=== PATIENT | female | born 1995 | race Caucasian/White ===

== ENCOUNTER 2020-08-28 16:06 | Emergency (ER) | payer OTHER ==
[~2020-08-28 16:06] MED LIST: CIPRODEX OTIC7.5 ML EARRT; DOXYCYCLINE HY100 MG PO; MACROBID 100 M100 MG PO; METRONIDAZOLE500 MG PO; NORCO 5-325 TA1 EACH PO; PYRIDIUM100 MG PO; ZOFRAN4 MG PO
[2020-08-28] MEDS ORDERED: VIBRAMYCIN100 MG PO (16:50)
[2020-08-31 17:09] LABS: CHLAMYDIA TRACHOMATIS, NAA Negative (Negative); NEISSERIA GONORRHOEAE, NAA Negative (Negative)
== END 2020-08-28 18:20 | disposition home or self-care (01) ==
LOC: ER1 16:06
PROVIDERS: Physician Assistant
DX: A64 Unspecified sexually transmitted disease (principal); F17.290 Nicotine dependence, other tobacco product, uncomplicated; Z88.8 Allergy status to other drugs, medicaments and biological substances
CPT/HCPCS: 81001; 84703; 87086; 96372; 99283; J0696

== ENCOUNTER 2021-03-06 20:38 | Emergency (ER) | payer OTHER ==
[~2021-03-06 20:38] MED LIST changes: +VIBRAMYCIN100 MG PO
== END 2021-03-06 21:38 | disposition home or self-care (01) ==
LOC: ER1 20:38
DX: N93.9 Abnormal uterine and vaginal bleeding, unspecified (principal); Z88.5 Allergy status to narcotic agent; Z88.1 Allergy status to other antibiotic agents
CPT/HCPCS: 99281

== ENCOUNTER 2021-05-24 21:36 | Emergency (ER) | payer OTHER | END 2021-05-24 22:35 | disposition left against medical advice (07) | LOC: ER1 21:36 | DX: Z53.21 Procedure and treatment not carried out due to patient leaving prior to being seen by health care provider (principal) ==

== ENCOUNTER 2021-07-17 02:51 | Emergency (ER) | payer OTHER ==
[2021-07-17 05:24] LABS: HEMOGLOBIN 12.2 gm/dl (12.3-15.3); RED BLOOD COUNT 4.12 M/UL (4.00-5.10); WHITE BLOOD COUNT 6.2 K/UL (4.5-11.0)
[2021-07-17 05:49] LABS: BUN/CREATININE RATIO 20 (0-10)
[2021-07-17] MEDS ORDERED: AMOXICILLIN500 MG PO (06:18)
[2021-07-17] MEDS ORDERED: PYRIDIUM200 MG PO (06:18)
[2021-07-17] MEDS ORDERED: MIRALAX 119 GR119 GM GT (06:19)
== END 2021-07-17 06:35 | disposition home or self-care (01) ==
LOC: ER1 02:51
PROVIDERS: Family Medicine
DX: O23.42 Unspecified infection of urinary tract in pregnancy, second trimester (principal); N39.0 Urinary tract infection, site not specified; O99.332 Smoking (tobacco) complicating pregnancy, second trimester; F17.200 Nicotine dependence, unspecified, uncomplicated; Z3A.14 14 weeks gestation of pregnancy
CPT/HCPCS: 80053; 83690; 85025; 99284

== ENCOUNTER 2021-07-28 02:57 | Emergency (ER) | payer OTHER ==
[~2021-07-28 02:57] MED LIST changes: +AMOXICILLIN500 MG PO; +MIRALAX 119 GR119 GM GT; +PYRIDIUM200 MG PO
[2021-07-28 04:30] LABS: HEMOGLOBIN 10.7 gm/dl (12.3-15.3); RED BLOOD COUNT 3.6 M/UL (4.00-5.10); WHITE BLOOD COUNT 7.5 K/UL (4.5-11.0)
[2021-07-28 04:46] LABS: BUN/CREATININE RATIO 21 (0-10)
[2021-07-28] MEDS ORDERED: ONDANSETRON ODT4 MG SL (05:15)
[2021-07-28] MEDS ORDERED: CEFDINIR300 MG PO (05:15)
== END 2021-07-28 05:27 | disposition home or self-care (01) ==
LOC: ER1 02:57
PROVIDERS: Physician Assistant
DX: O23.42 Unspecified infection of urinary tract in pregnancy, second trimester (principal); N39.0 Urinary tract infection, site not specified; O99.332 Smoking (tobacco) complicating pregnancy, second trimester; F17.200 Nicotine dependence, unspecified, uncomplicated; Z3A.16 16 weeks gestation of pregnancy; Z88.8 Allergy status to other drugs, medicaments and biological substances
CPT/HCPCS: 80053; 81001; 83690; 85025; 87086; 96374; 96375; 99284; J0696; J2405

== ENCOUNTER 2021-08-16 15:48 | Emergency (ER) | payer OTHER ==
[~2021-08-16 15:48] MED LIST changes: +CEFDINIR300 MG PO; +ONDANSETRON ODT4 MG SL
[2021-08-16 16:31] LABS: HEMOGLOBIN 12.8 gm/dl (12.3-15.3); RED BLOOD COUNT 4.15 M/UL (4.00-5.10)
[2021-08-16 16:58] LABS: BUN/CREATININE RATIO 14 (0-10)
== END 2021-08-16 17:31 | disposition left against medical advice (07) ==
LOC: ER1 15:48
PROVIDERS: Physician Assistant
DX: O99.891 Other specified diseases and conditions complicating pregnancy (principal); R10.30 Lower abdominal pain, unspecified; O99.332 Smoking (tobacco) complicating pregnancy, second trimester; F17.200 Nicotine dependence, unspecified, uncomplicated; Z3A.18 18 weeks gestation of pregnancy
CPT/HCPCS: 76815; 80053; 81001; 85025; 99283

== ENCOUNTER 2021-08-20 21:59 | Emergency (ER) | payer OTHER ==
[2021-08-20 22:39] LABS: HEMOGLOBIN 11.8 gm/dl (12.3-15.3); RED BLOOD COUNT 3.87 M/UL (4.00-5.10); WHITE BLOOD COUNT 9.2 K/UL (4.5-11.0)
[2021-08-20 22:48] LABS: BUN/CREATININE RATIO 26 (0-10)
== END 2021-08-20 23:45 | disposition home or self-care (01) ==
LOC: ER1 21:59
PROVIDERS: Family Medicine
DX: O99.891 Other specified diseases and conditions complicating pregnancy (principal); O99.332 Smoking (tobacco) complicating pregnancy, second trimester; F17.200 Nicotine dependence, unspecified, uncomplicated; Z3A.19 19 weeks gestation of pregnancy
CPT/HCPCS: 80053; 81001; 83690; 84702; 85025; 87086; 99284

== ENCOUNTER 2021-10-28 01:43 | Outpatient (CLI) | payer OTHER | END 2021-10-28 03:55 | disposition other institution (70) | LOC: GENOP 01:43 | DX: O99.891 Other specified diseases and conditions complicating pregnancy (principal); N89.8 Other specified noninflammatory disorders of vagina; Z88.8 Allergy status to other drugs, medicaments and biological substances; Z3A.28 28 weeks gestation of pregnancy | CPT/HCPCS: 83518; G0463 ==